=== PATIENT | female | born 1995 | race Caucasian/White ===

== ENCOUNTER 2024-08-13 15:31 | Emergency (ER) | payer MEDICAID ==
[~2024-08-13] VITALS: Ht 154.9 cm; Wt 74.8 kg
[2024-08-13 15:42] VITALS: PULSE 100; RESP 18; TEMP 97.7; O2SAT 98
== END 2024-08-13 16:48 | disposition home or self-care (01) ==
LOC: FSED 15:35
DX: O47.1 False labor at or after 37 completed weeks of gestation (principal)
CPT/HCPCS: 99284